=== PATIENT | male | born 1950 | race Caucasian/White ===

== ENCOUNTER 2020-01-07 18:44 | Emergency (ER) | payer MEDICARE, SELFPAY ==
--- NOTE | ~2020-01-07 | CT_ITS ---
EXAMINATION: CT BRAIN W/O DATE: 01/07/2020 19:02 INDICATION: Status post fall. Laceration. TECHNIQUE: Computed tomography (CT) of the head was performed without intravenous contrast. The dose- length product was 681.00 mGy-cm. The mA was adjusted according to patient size. Iterative reconstruc tion technique was employed. COMPARISON: No prior studies for comparison. FINDINGS: Mild atrophy. There are scattered mild periventricular and subcortical white matter changes , most likely related to small vessel ischemic disease (microangiopathy). Normal barrera-white different iation. No acute intracranial hemorrhage, infarction, mass or mass effect. No ventriculomegaly or midline shift. Midline sagittal images demonstrate a normal corpus callosum, c raniovertebral junction and sella turcica. Basilar cisterns are patent. There is mucosal thickening of the anterior left ethmoid air cells and left frontal sinus. Mastoids a re pneumatized. IMPRESSION: 1. No acute intracranial abnormality. 2: Left frontal and ethmoid sinusitis. 2: Chronic age-related findings. Reviewed, dictated and finalized at location A. FINISHER
[2020-01-07 18:45] VITALS: BP 139/81; PULSE 83; RESP 18; TEMP 36.7; O2SAT 99
--- NOTE | 2020-01-07 19:40 | ED.GENADULT ---
HPI - General Adult General Chief complaint: Wound/Laceration Stated complaint: fall head lac Source: patient and EMS Mode of arrival: EMS Limitations: no limitations History of Present Illness HPI narrative: Patient is a 69-year-old male who presents for EMS for evaluation of head injury that occurred just prior to arrival was walking up the stairs when he struck his head sustaining a laceration to the left temporal parietal scalp patient notes aching pain at this location that is minimal in nature denies headache lightheadedness dizziness syncope or loss of consciousness does not wish for any pain medication at this time and is otherwise resting comfortably in the room upon arrival in no distress and denies other injuries Related Data Allergies Allergy/AdvReac Type Severity Reaction Status Date / Time No Known Allergies Allergy Verified 01/07/20 19:07 Review of Systems Review of Systems: All systems reviewed & are unremarkable except as noted in HPI and below Exam Narrative: Exam Narrative: GENERAL: Well-appearing, well-nourished, and in no acute distress. HEAD: Normocephalic, 3 cm temporal parietal scalp laceration EYES: PERRLA and EOMI. ENT: Nares clear, no rhinorrhea or epistaxis. Mucous membranes moist. NECK: Supple. No adenopathy or masses. No carotid bruits or JVD CHEST: Clear to auscultation. No respiratory distress. No wheezes rales or rhonchi HEART: Regular rate and rhythm. No murmur heard. EXTREMITIES: Normal range of motion. No edema. No cervical spine tenderness SKIN: Warm, dry, no rash. NEURO: No focal deficits. Alert and oriented x3. Cranial nerves II through XII grossly intact PSYCH: Normal mood and affect. Course Course Emergency Course: Patient in the room in no distress aware of case findings treatment plan and diagnosis Vital Signs Vital signs: Vital Signs Temperature 98.0 F 01/07/20 18:45 Pulse Rate 83 01/07/20 18:45 Respiratory Rate 18 01/07/20 18:45 Blood Pressure 139/81 01/07/20 18:45 Pulse Oximetry 99 01/07/20 18:45 Temperature 98.0 F 01/07/20 18:45 Pulse Rate 83 01/07/20 18:45 Respiratory Rate 18 01/07/20 18:45 Blood Pressure 139/81 01/07/20 18:45 Pulse Oximetry 99 11/01/20 18:45 Procedures Laceration Laceration 1: Date: 01/07/20 Time: 19:43 Site: scalp Size (cm): 3 Description: linear Depth: simple, single layer Pre-repair: wound explored ====== Skin Level ====== Skin layer closed with: [email or web address] Number of sutures: 5 ====== Subcutaneous Layer ====== ====== Muscle Layer ====== ====== Tendon Layer ====== Medical Decision Making MDM Narrative Medical decision making narrative: Patient in the room in no distress aware of case findings treatment plan diagnosis agreeing to follow-up as directed or to return if symptoms worsen or concerns Vital Signs Vital Signs: Vital Signs Temperature 98.0 F 01/07/20 18:45 Pulse Rate 83 01/07/20 18:45 Respiratory Rate 18 01/07/20 18:45 Blood Pressure 139/81 01/07/20 18:45 Pulse Oximetry 99 01/07/20 18:45 Temperature 98.0 F 01/07/20 18:45 Pulse Rate 83 01/07/20 18:45 Respiratory Rate 18 01/07/20 18:45 Blood Pressure 139/81 01/07/20 18:45 Pulse Oximetry 99 01/07/20 18:45 Discharge Plan Discharge Clinical Impression: Laceration, Head injury Patient Disposition: Home, Self-Care Condition: Stable Instructions: Antibiotic Form, Laceration (ED), Head Injury (ED) Additional Instructions: Follow up with your primary care doctor in 5-7 days for re-evaluation. Go to ER for worsening pain, vision changes, nausea/vomiting, fever/chills, weakness, chest pain, shortness of breath, numbness/tingling, slurred speech, difficulty walking, change in mental status etc. or any other concerns. Josephine must be removed in the next 7 to 10 days Take any prescribed medications as directed.
== END 2020-01-07 19:56 | disposition home or self-care (01) ==
PROVIDERS: Emergency Provider Emergency Medicine
DX: S01.01XA Laceration without foreign body of scalp, initial encounter (principal); W22.8XXA Striking against or struck by other objects, initial encounter
CPT/HCPCS: 12002; 70450; 99284